=== PATIENT | female | born 1935 | race Caucasian/White ===

== ENCOUNTER → 2017-06-25 | Outpatient (CLI) | payer MEDICARE, BC ==
[~2017-06-25] MED LIST: DENOSUMAB 60 MG/ML 1 ML SYRINGE SQ ONE
[2017-06-25 09:36] VITALS: BP 126/60; PULSE 72; RESP 16; TEMP 97.9
== END | disposition home or self-care (01) ==
LOC: PROCWHC3 08:57
PROVIDERS: ATTEND Family Medicine
DX: M81.0 Age-related osteoporosis without current pathological fracture (principal)
CPT/HCPCS: 96372; J0897

== ENCOUNTER → 2019-10-05 | Outpatient (CLI) | payer MEDICARE, BC ==
--- NOTE | 2019-10-05 15:56 | US ---
EXAMINATION TYPE: US kidneys/renal and bladder DATE OF EXAM: 10/05/2019 COMPARISON: US 2016 CLINICAL HISTORY: N18.4 CKD stage 4. CKD stage 4 EXAM MEASUREMENTS: Right Kidney: 7.2 x 3.8 x 3.8 cm Left Kidney: 8.2 x 4.7 x 3.5 cm Right Kidney: measures small in size, no hydronephrosis or masses seen Left Kidney: measures small in size, no hydronephrosis, 0.9cm cortical cyst Bladder: not fully distended, appears wnl as seen Bilateral Jets seen: right jet not seen, left jet seen IMPRESSION: 1. Visualized renal ultrasound is unremarkable 2. There appears to be some thinning of the cortex on the right kidney suggestive for renal failure
== END ==
LOC: RADUSWWP 12:24
PROVIDERS: ATTEND Family Medicine
DX: R93.421 Abnormal radiologic findings on diagnostic imaging of right kidney (principal); N18.4 Chronic kidney disease, stage 4 (severe)
CPT/HCPCS: 76770

== ENCOUNTER → 2019-12-22 | Outpatient (CLI) | payer MEDICARE, BC ==
[2019-12-22 14:22] LABS: HCT 34.3 % (34.0-46.0); HGB 10.9 gm/dL (11.4-16.0); MCH 29.8 pg (25.0-35.0); MCHC 31.7 g/dL (31.0-37.0); MCV 94.2 fL (80.0-100.0); Mean Platelet Volume 7.7; Platelet Count 154 k/uL (150-450); RBC 3.64 m/uL (3.80-5.40); RDW 13.2 % (11.5-15.5)
[2019-12-22 14:31] LABS: Prothrombin Time 10.6 sec (9.0-12.0)
[2019-12-22 18:46] LABS: ALT <8 U/L (8-44); AST 14 U/L (13-35); African American GFR (CKD) 26.3 (60.0-200.0); Albumin/Globulin Ratio 2.44 (1.60-3.17); Alkaline Phosphatase 48 U/L (41-126); Calcium 9.8 mg/dL (8.7-10.3); Carbon Dioxide 25.3 mmol/L (21.6-31.8); Chloride 106 mmol/L (96-109); Globulin 1.8 g/dL (1.6-3.3); Glucose 135 mg/dL (70-110); Magnesium 1.8 mg/dL (1.5-2.4); Non-African American GFR(CKD) 22.7 (60.0-200.0); Potassium 5.2 mmol/L (3.5-5.5); Sodium 140 mmol/L (135-145); Total Bilirubin 0.5 mg/dL (0.3-1.2); Total Protein 6.2 g/dL (6.2-8.2)
== END | disposition home or self-care (01) ==
LOC: LABWHC1 12:16
PROVIDERS: ATTEND Student in an Organized Health Care Education/Training Program
DX: I11.0 Hypertensive heart disease with heart failure (principal); I25.119 Atherosclerotic heart disease of native coronary artery with unspecified angina pectoris; I50.9 Heart failure, unspecified; I34.0 Nonrheumatic mitral (valve) insufficiency
CPT/HCPCS: 36415; 80053; 83735; 83880; 85027; 85610

== ENCOUNTER 2020-10-06 19:27 | Inpatient (IN) | payer MEDICARE, BC ==
[2020-10-06] MEDS ORDERED: SODIUM CHLORIDE 0.9% 500 ML 500 ML IV STA (19:44)
[2020-10-06] MEDS ORDERED: SODIUM CHLORIDE 0.9% 1,000 ML IV STA (19:44)
[2020-10-06] MEDS ORDERED: MORPHINE SULFATE 4 MG/ML SYRINGE IV STA (19:44)
[2020-10-06] MEDS ORDERED: LABETALOL 5 MG/ML VIAL MDV IVP STA ×2 (19:44→20:39)
--- NOTE | 2020-10-06 19:45 | ED ---
Chest Pain HPI - General Chief Complaint: Chest Pain Stated Complaint: Chest Pain/High BP Time Seen by Provider: 10/06/20 19:44 Source: patient, RN notes reviewed, old records reviewed Mode of arrival: wheelchair Limitations: no limitations - History of Present Illness Initial Comments: This is a 5-year-old female who presents with sudden onset chest pain was severely elevated blood pressure. Patient does admit to anxiety with this chest pain history of heart disease history of heart surgery. Patient has had bypass grafting. She has had stents placed since. No recent fevers cough or congestion of travel history symptoms began just prior to arrival with diaphoresis and shortness of breath MD Complaint: chest pain -: hour(s) Onset: during rest Pain Location: left chest, right chest Pain Radiation: back Severity: severe Severity scale (1-10): 10 Quality: heaviness, sharp Consistency: constant Improves With: nothing Worsens With: nothing Anginal Symptoms: nausea, dyspnea, sense of impending doom Other Symptoms: palpitations Treatments Prior to Arrival: none - Related Data Home Medications Medication Instructions Recorded Confirmed Atorvastatin [Lipitor] 40 mg PO HS 03/17/15 10/06/20 Cholecalciferol [Vitamin D3 (25 1,000 unit PO DAILY 03/17/15 10/06/20 Mcg = 1000 Iu)] Cinnamon Bark [Cinnamon] 1,000 mg PO BID 03/17/15 10/06/20 Isosorbide Mononitrate ER [Imdur] 60 mg PO BID 03/17/15 10/06/20 Metoprolol Tartrate [Lopressor] 100 mg PO BID 06/25/17 10/06/20 Alendronate Sodium 70 mg PO RITCHIE 10/06/20 10/06/20 Aspirin EC [Ecotrin Low Dose] 81 mg PO DAILY 10/06/20 10/06/20 Calcium Carbonate [Calcium] 600 mg PO DAILY 10/06/20 10/06/20 Famotidine 20 mg PO DAILY 10/06/20 10/06/20 Fish Oil/Dha/Epa [Fish Oil 1,200 1 cap PO BID 10/06/20 10/06/20 mg Fish Oil] Nitroglycerin Sl Tabs [Nitrostat] 0.4 mg SUBLINGUAL Q5M PRN 10/06/20 10/06/20 Prednisolone Acetate/Pf 1 drop BOTH EYES BID 10/06/20 10/06/20 [Prednisolone Acet 1% Eye Drop] Ranolazine [Ranolazine ER] 500 mg PO BID 10/06/20 10/06/20 Allergies Allergy/AdvReac Type Severity Reaction Status Date / Time CHALINO Inhibitors Allergy Unknown Cough Verified 10/06/20 20:40 adhesive Allergy Rash/Hives,states Verified 10/06/20 20:40 "paper tape is ok" Sulfa (Sulfonamide Allergy skin turns Verified 10/06/20 20:40 Antibiotics) bright red Review of Systems ROS Statement: Those systems with pertinent positive or pertinent negative responses have been documented in the HPI. ROS Other: All systems not noted in ROS Statement are negative. EKG Findings - EKG Comments: EKG Findings:: EKG SHOWS N sinus rhythm 78, NM 240 QRS 88 QTc 449 Past Medical History Past Medical History: GERD/Reflux, Hyperlipidemia, Hypertension Additional Past Medical History / Comment(s): 04/13/15 Pt admitted to floor s/p angioplasty RCA. HX OF KIDNEY CA, HAVING INTERMITTENT CHEST PAIN WITH EXERTION, NIDDM, CATARACTS, UTI, WAS TOLD BY A DR SHE HAD AN DE AT ONE TIME BASED ON AN EKG THAT WAS DONE-DATE UNK, Valve and clip procedure done at [facility] in dec 2019 History of Any Multi-Drug Resistant Organisms: None Reported Past Surgical History: Heart Catheterization Additional Past Surgical History / Comment(s): 04/13/15 PTCA RCA, 1996 CABG 4 VESSEL, 10% RT KIDNEY REMOVED, 2016 R leg angioplasty Past Anesthesia/Blood Transfusion Reactions: No Reported Reaction Past Psychological History: No Psychological Hx Reported Smoking Status: Never smoker Past Alcohol Use History: Occasional Past Drug Use History: None Reported - Past Family History Brother(s) Family Medical History: Cancer Additional Family Medical History / Comment(s): LUNG/LIVER Sister(s) Family Medical History: Cancer Additional Family Medical History / Comment(s): LIVER Father Family Medical History: Myocardial Infarction (DE) Additional Family Medical History / Comment(s): Father of a DE at age 72yrs. Mother Family Medical History: Myocardial Infarction (DE) Additional Family Medical History / Comment(s): Mother had 11 DE's and at age 66 yrs. General Exam Limitations: no limitations General appearance: alert, in no apparent distress Head exam: Present: atraumatic, normocephalic, normal inspection Eye exam: Present: normal appearance, PERRL, EOMI. Absent: scleral icterus, conjunctival injection, periorbital swelling ENT exam: Present: normal exam, mucous membranes moist Neck exam: Present: normal inspection. Absent: tenderness, meningismus, lymphadenopathy Respiratory exam: Present: normal lung sounds bilaterally. Absent: respiratory distress, wheezes, rales, rhonchi, stridor Cardiovascular Exam: Present: regular rate, normal rhythm, normal heart sounds. Absent: systolic murmur, diastolic murmur, rubs, gallop, clicks GI/Abdominal exam: Present: soft, normal bowel sounds. Absent: distended, tenderness, guarding, rebound, rigid Extremities exam: Present: normal inspection, full ROM, normal capillary refill. Absent: tenderness, pedal edema, joint swelling, calf tenderness Back exam: Present: normal inspection Neurological exam: Present: alert, oriented X3, CN II-XII intact Psychiatric exam: Present: normal affect, normal mood Skin exam: Present: warm, dry, intact, normal color. Absent: rash Course Vital Signs 10/06/20 10/06/20 10/06/20 19:30 20:05 20:15 Temperature 97.8 F Pulse Rate 83 Respiratory 24 Rate Blood Pressure 195/113 237/106 243/176 O2 Sat by Pulse 100 Oximetry 10/06/20 10/06/20 10/07/20 21:44 23:52 02:00 Temperature Pulse Rate 70 71 63 Respiratory 18 17 16 Rate Blood Pressure 192/78 187/85 147/60 O2 Sat by Pulse 100 100 100 Oximetry 10/07/20 10/07/20 10/07/20 03:26 06:29 07:57 Temperature 97.7 F Pulse Rate 65 65 66 Respiratory 16 18 Rate Blood Pressure 147/80 176/69 177/82 O2 Sat by Pulse 100 100 Oximetry 10/07/20 10/07/20 10/07/20 09:19 15:12 16:00 Temperature Pulse Rate 71 65 96 Respiratory 18 20 18 Rate Blood Pressure 177/67 179/75 160/77 O2 Sat by Pulse 100 98 Oximetry 10/07/20 17:15 Temperature 98.1 F Pulse Rate 81 Respiratory 20 Rate Blood Pressure 162/68 O2 Sat by Pulse 95 Oximetry - Reevaluation(s) Reevaluation #1: Medical records reviewed Patient was sent for CTA secondary elevated blood pressure chest pain, negative for dissection Patient's pain is improved here in the ER Patient will be admitted for ACS and hypertensive emergency, blood pressures improved Chest Pain MDM - MDM 85 female DF for evaluation of likely ACS, patient has severe chest pain with severe hypertensive emergency. Patient to be admitted for cardiology to evaluate Critical Care Time Critical Care Time: Yes Total Critical Care Time: 31 Disposition Clinical Impression: Chest pain, Hypertensive emergency Disposition: ADMITTED IP TO THIS HOSP Condition: Good Is patient prescribed a controlled substance at d/c from ED?: No
[2020-10-06 20:15] LABS: Basophils # (A) 0.1 k/uL (0-0.2); Basophils % (A) 1 %; Eosinophils # (A) 0.2 k/uL (0-0.7); Eosinophils % (A) 2 %; HCT 39.9 % (34.0-46.0); HGB 13.3 gm/dL (11.4-16.0); Lymphocytes # (A) 1.1 k/uL (1.0-4.8); Lymphocytes % (A) 16 %; MCH 30.4 pg (25.0-35.0); MCHC 33.3 g/dL (31.0-37.0); MCV 91.5 fL (80.0-100.0); Mean Platelet Volume 7.9; Monocytes # (A) 0.3 k/uL (0-1.0); Monocytes % (A) 5 %; Neutrophils % (A) 75 %; Platelet Count 159 k/uL (150-450); RBC 4.36 m/uL (3.80-5.40); RDW 13.6 % (11.5-15.5); WBC 6.7 k/uL (3.8-10.6)
[2020-10-06 20:30] LABS: Prothrombin Time 10.1 sec (9.0-12.0)
[2020-10-06 20:33] LABS: Albumin 4.6 g/dL (3.5-5.0); Calcium 10.3 mg/dL (8.4-10.2); Magnesium 1.7 mg/dL (1.6-2.3); Potassium 4.1 mmol/L (3.5-5.1); Total Bilirubin 0.6 mg/dL (0.2-1.3); Total Protein 7.9 g/dL (6.3-8.2)
[2020-10-06 20:38] LABS: Partial Thromboplastin Time 20.7 sec (22.0-30.0)
--- NOTE | 2020-10-06 21:35 | CT ---
EXAMINATION TYPE: CT angio thor/abd pel aorta DATE OF EXAM: 10/06/2020 COMPARISON: CT abdomen and pelvis May 27, 2014 HISTORY: Hypertension with pain. CT DLP: 1261.1 mGycm. Automated Exposure Control for Dose Reduction was Utilized. CONTRAST: CTA scan of the thorax, abdomen and pelvis is performed with IV Contrast, patient injected with 60 mL of Isovue 370. Three-D reconstructed images created on a independent workstation and reviewed. FINDINGS: Vascular: Four vessel origin from aortic arch which is normal variant. No significant stenosis. Mild to moderate mixed plaque in the thoracic aorta. Moderate calcified plaque at origin of celiac artery causing greater than 50% stenosis and SMA causin g similar greater than 50% stenosis. Calcified plaque likely causes significant stenosis at origin of right renal artery. Mixed plaque causes significant stenosis at origin of left renal artery. Patent WILBER. Moderate to severe mixed plaque in the abdominal aorta extending into common iliac artery branch es. Moderate plaque into the internal/external iliac artery branches. No significant stenosis. Modera te plaque in the bilateral groin region. No aneurysm or dissection. LUNGS: Mild to moderate underlying emphysematous change greatest in the upper lungs with scattered bl ebs and bulla. Mild to moderate scarring and/or atelectasis in both bases. Tiny bilateral pleural eff usions. No suspicious focal consolidation. MEDIASTINUM: There are no greater than 1 cm hilar or mediastinal lymph nodes. No pericardial effusi on is seen. Mild cardiomegaly. Post-CABG changes with mediastinal clips and sternal wires. Calcifica tion at level of mitral valve is presumed surgical change. There is metallic density in the right tanna tricle causing streak artifact axial image 59, possible large foreign body. Correlate clinically. The re are left-sided thyroid nodule including rim calcified 1.6 cm left thyroid nodule axial image 1. LIVER/GB: Gallbladder not seen and presumed surgically absent. PANCREAS: No significant abnormality is seen. SPLEEN: No significant abnormality is seen. ADRENALS: No significant abnormality is seen. KIDNEYS: Cortical thinning both kidneys. Lower pole right renal contour laterally contains fat along with calcific and soft tissue density, there are tiny vessels at this level. 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 BOWEL: Fluid-filled dilated esophagus. Small sized hiatal hernia. Debris-filled distended stomach. No suspicious dilatation of duodenal sweep. Mildly prominent jejunal loops in the left upper to mid abd omen. No suspicious small or large bowel dilatation otherwise. Diverticula in the transverse left and sigmoid colon. No CT evidence for acute diverticulitis. GENITAL ORGANS: Slightly anteverted uterus. LYMPH NODES: No greater than 1cm abdominal or pelvic lymph nodes are appreciated. OSSEOUS STRUCTURES: Multilevel spurring in the spine. Moderate disc space narrowing with vacuum disc phenomenon L5-S1 level. Moderate narrowing of both hip joints. OTHER: No significant additional abnormality is seen. IMPRESSION: 1. No thoracic or abdominal aortic aneurysm. 2. Moderate to severe atherosclerotic change of the abdominal aorta extending into branch vessels wi th significant stenosis likely present at origin of celiac artery, proximal SMA, bilateral single jose antonio al arteries. Findings presumed chronic. Outpatient follow-up is advised. 3. Mild to moderate emphysematous change with tiny bilateral pleural effusions and mild cardiomegaly. Correlate for CHF exacerbation. 4. Metallic right ventricular density of uncertain etiology, possible lodged foreign body versus prod uct of prior surgery. Correlate clinically. 5. Possible gastroparesis or gastric outlet obstruction causing dilated fluid-filled esophagus up to thoracic inlet, correlate clinically. Follow-up advised. 6. Greater than 1 cm rim calcified left thyroid nodule, nonurgent thyroid ultrasound follow-up is adv ised.
[2020-10-06] MEDS ORDERED: NITROGLYCERIN SL TABS 0.4 MG TAB SUBLINGUAL PRN (22:10)
[2020-10-06] MEDS ORDERED: MORPHINE SULFATE 4 MG/ML SYRINGE IV PRN (22:10)
[2020-10-07 03:11] LABS: Cholesterol 118 mg/dL (<200); HDL Cholesterol 56 mg/dL (40-60); LDL Cholesterol,Calculated 40 mg/dL (0-99); Triglycerides 110 mg/dL (<150)
[2020-10-07] MEDS ORDERED: HEPARIN SODIUM,PORCINE 5,000 UNIT/ML 1 ML VIAL IV PRN (07:43)
[2020-10-07] MEDS ORDERED: HEPARIN SODIUM,PORCINE 5,000 UNIT/ML 1 ML VIAL IV ONE (07:43)
[2020-10-07] MEDS ORDERED: ATORVASTATIN 80 MG TAB PO STA ×2 (07:46→08:57)
[2020-10-07] MEDS: ASPIRIN 325 MG TAB PO SCH (07:51)
[2020-10-07] MEDS: HEPARIN SOD,PORK IN 0.45% NACL 25,000 UNIT in 0.45% NACL 1 250ML.BAG IV SCH (07:56)
[2020-10-07 08:25] LABS: Basophils % (A) 0 %; Eosinophils # (A) 0.1 k/uL (0-0.7); Eosinophils % (A) 1 %; HGB 11.9 gm/dL (11.4-16.0); Lymphocytes # (A) 0.9 k/uL (1.0-4.8); Lymphocytes % (A) 16 %; MCH 31.5 pg (25.0-35.0); MCV 92.7 fL (80.0-100.0); Mean Platelet Volume 7.7; Monocytes # (A) 0.3 k/uL (0-1.0); Monocytes % (A) 5 %; Neutrophils # (A) 4.6 k/uL (1.3-7.7); Neutrophils % (A) 77 %; Platelet Count 114 k/uL (150-450); RBC 3.78 m/uL (3.80-5.40); RDW 13.6 % (11.5-15.5)
[2020-10-07 08:34] LABS: Albumin 3.6 g/dL (3.5-5.0); Calcium 9.2 mg/dL (8.4-10.2); Total Bilirubin 0.6 mg/dL (0.2-1.3); Total Protein 6.5 g/dL (6.3-8.2)
[2020-10-07] MEDS ORDERED: SODIUM CHLORIDE 0.9% 1,000 ML in EMPTY BAG 1 BAG IV ONE (08:57)
[2020-10-07] MEDS ORDERED: NITROGLYCERIN SL TABS 0.4 MG TAB SUBLINGUAL PRN (08:57)
[2020-10-07] MEDS ORDERED: ALPRAZolam 0.25 MG TAB PO PRN (08:57)
[2020-10-07] MEDS ORDERED: ALPRAZolam 0.5 MG TAB PO PRN (08:57)
[2020-10-07] MEDS ORDERED: ASPIRIN 325 MG TAB PO STA (08:57)
[2020-10-07] MEDS ORDERED: METOPROLOL TARTRATE 25 MG TAB PO SCH (09:00)
[2020-10-07 09:17] LABS: INR 1.1 (<1.2); Prothrombin Time 11.3 sec (9.0-12.0)
[2020-10-07 09:28] LABS: Partial Thromboplastin Time 152.7 sec (22.0-30.0)
--- NOTE | 2020-10-07 10:48 | P.HPIM ---
History of Present Illness H&P Date: 10/07/20 Chief Complaint: Chest pain This is an 85-year-old white female who reported to the hospital because of right-sided chest pain. She states that her pain started yesterday afternoon, it lasted for about 45 minutes, she describes it as burning pain radiating to her right shoulder. She denies shortness of breath, she denies dizziness or loss of consciousness. She denies cough or fever, she denies subjective fever or chills. At the time of examination her symptoms resolved. She states that she reported to the hospital because she usually does not have pain that radiate s to her shoulder but usually just gets intermittent chest pains. Review of Systems 10 systems reviewed, pertinent positive and negative findings as in HPI, + chest pain, no nausea or vomiting. Past Medical History Past Medical History: GERD/Reflux, Hyperlipidemia, Hypertension Additional Past Medical History / Comment(s): 04/13/15 Pt admitted to floor s/p angioplasty RCA. HX OF KIDNEY CA, HAVING INTERMITTENT CHEST PAIN WITH EXERTION, NIDDM, CATARACTS, UTI, WAS TOLD BY A DR SHE HAD AN KS AT ONE TIME BASED ON AN EKG THAT WAS DONE-DATE UNK, Valve and clip procedure done at [facility] in dec 2019 History of Any Multi-Drug Resistant Organisms: None Reported Past Surgical History: Heart Catheterization Additional Past Surgical History / Comment(s): 04/13/15 PTCA RCA, 1996 CABG 4 VESSEL, 10% RT KIDNEY REMOVED, 2016 R leg angioplasty Past Anesthesia/Blood Transfusion Reactions: No Reported Reaction Past Psychological History: No Psychological Hx Reported Smoking Status: Never smoker Past Alcohol Use History: Occasional Past Drug Use History: None Reported - Past Family History Brother(s) Family Medical History: Cancer Additional Family Medical History / Comment(s): LUNG/LIVER Sister(s) Family Medical History: Cancer Additional Family Medical History / Comment(s): LIVER Father Family Medical History: Myocardial Infarction (KS) Additional Family Medical History / Comment(s): Father of a KS at age 72yrs. Mother Family Medical History: Myocardial Infarction (KS) Additional Family Medical History / Comment(s): Mother had 11 KS's and at age 66 yrs. Medications and Allergies Home Medications Medication Instructions Recorded Confirmed Type Atorvastatin [Lipitor] 40 mg PO HS 03/17/15 10/06/20 History Cholecalciferol [Vitamin D3 (25 1,000 unit PO DAILY 03/17/15 10/06/20 History Mcg = 1000 Iu)] Cinnamon Bark [Cinnamon] 1,000 mg PO BID 03/17/15 10/06/20 History Isosorbide Mononitrate ER [Imdur] 60 mg PO BID 03/17/15 10/06/20 History Metoprolol Tartrate [Lopressor] 100 mg PO BID 06/25/17 10/06/20 History Alendronate Sodium 70 mg PO RITCHIE 10/06/20 10/06/20 History Aspirin EC [Ecotrin Low Dose] 81 mg PO DAILY 10/06/20 10/06/20 History Calcium Carbonate [Calcium] 600 mg PO DAILY 10/06/20 10/06/20 History Famotidine 20 mg PO DAILY 10/06/20 10/06/20 History Fish Oil/Dha/Epa [Fish Oil 1,200 1 cap PO BID 10/06/20 10/06/20 History mg Fish Oil] Nitroglycerin Sl Tabs [Nitrostat] 0.4 mg SUBLINGUAL Q5M PRN 10/06/20 10/06/20 History Prednisolone Acetate/Pf 1 drop BOTH EYES BID 10/06/20 10/06/20 History [Prednisolone Acet 1% Eye Drop] Ranolazine [Ranolazine ER] 500 mg PO BID 10/06/20 10/06/20 History Allergies Allergy/AdvReac Type Severity Reaction Status Date / Time CHALINO Inhibitors Allergy Unknown Cough Verified 10/06/20 20:40 adhesive Allergy Rash/Hives,states Verified 10/06/20 20:40 "paper tape is ok" Sulfa (Sulfonamide Allergy skin turns Verified 10/06/20 20:40 Antibiotics) bright red Physical Exam Vitals: Vital Signs Temp Pulse Resp BP Pulse Ox 10/07/20 09:19 71 18 177/67 100 10/07/20 07:57 97.7 F 66 18 177/82 100 10/07/20 06:29 65 16 176/69 100 10/07/20 03:26 65 147/80 10/07/20 02:00 63 16 147/60 100 10/06/20 23:52 71 17 187/85 100 10/06/20 21:44 70 18 192/78 100 11/26/20 20:15 243/176 10/06/20 20:05 237/106 10/06/20 19:30 97.8 F 83 24 195/113 100 Intake and Output 10/06/20 10/07/20 10/07/20 22:59 06:59 14:59 Intake Total 13.013 Balance 13.013 Intake: Intake, IV Titration 13.013 Amount Heparin Sod,Pork in 0.45% 13.013 NaCl 25,000 unit In 0.45 % NaCl 1 250ml.bag @ 12 UNITS/KG/HR 8.219 mls/hr IV .Q24H [facility] Rx#: [id number] Other: Weight 68.492 kg Constitutional: No acute distress, conversant, pleasant Eyes: Anicteric sclerae, moist conjunctiva, no lid-lag, PERRLA ENMT: NC/AT Neck:Supple, FROM, no masses, or JVD Lungs: Clear to auscultation, Clear to percussion, Normal respiratory effort, no accessory muscle use Cardiovascular: Heart regular in rate and rhythm, No murmurs, gallops, or rubs no peripheral edema Abdominal: Soft Nontender, nom distended, no guarding, no rebound or rigidity, Normoactive bowel sounds No hepatomegaly, No splenomegaly, No palpable mass No abdominal wall hernia noted Skin: Normal temperature, tone, texture, turgor, No induration No subcutaneous nodules Extremities:No digital cyanosis No clubbing, Pedal pulses intact and symmetrical Radial pulses intact and symmetrical Normal gait and station, No calf tenderness Psychiatric: Alert and oriented to person, place and time, Appropriate affect Intact judgement Neuro: Muscles Strength 5/5 in all 4 extremities, Sensation to light touch grossly present throughout, Cranial nerves II-XII grossly intact. No focal sensory deficits Results CBC & Chem 7: 10/07/20 08:16 10/07/20 08:16 Labs: Abnormal Lab Results - Last 24 Hours (Table) 10/06/20 10/06/20 10/06/20 Range/Units 20:07 20:07 22:34 RBC (3.80-5.40) m/uL Plt Count (150-450) k/uL Lymphocytes # (1.0-4.8) k/uL APTT 20.7 L (22.0-30.0) sec BUN 36 H (7-17) mg/dL Creatinine 1.79 H (0.52-1.04) mg/dL Glucose 233 H (74-99) mg/dL Calcium 10.3 H (8.4-10.2) mg/dL Troponin I 0.214 H* (0.000-0.034) ng/mL 10/07/20 10/07/20 10/07/20 Range/Units 02:26 08:16 08:16 RBC 3.78 L (3.80-5.40) m/uL Plt Count 114 L (150-450) k/uL Lymphocytes # 0.9 L (1.0-4.8) k/uL APTT 152.7 H* (22.0-30.0) sec BUN (7-17) mg/dL Creatinine (0.52-1.04) mg/dL Glucose (74-99) mg/dL Calcium (8.4-10.2) mg/dL Troponin I 1.890 H* (0.000-0.034) ng/mL 10/07/20 10/07/20 Range/Units 08:16 08:16 RBC (3.80-5.40) m/uL Plt Count (150-450) k/uL Lymphocytes # (1.0-4.8) k/uL APTT (22.0-30.0) sec BUN 29 H (7-17) mg/dL Creatinine 1.44 H (0.52-1.04) mg/dL Glucose 173 H (74-99) mg/dL Calcium (8.4-10.2) mg/dL Troponin I 4.590 H* (0.000-0.034) ng/mL Assessment and Plan Plan: 1. Non-ST segment elevation KS: Troponin 4.5, continue aspirin, Lipitor, metopr olol and heparin drip. Cardiology input appreciated. CT chest/abdomen no aneurysm or dissection. 2. Essential hypertension: Continue Lopressor 3. Coronary artery disease status post CABG: Continue outpatient medications, cardiology consultation. 4. Hyperlipidemia: Continue simvastatin 5. GERD without esophagitis: Continue PPI Admit to inpatient Disposition: Home in 2-3 days
--- NOTE | 2020-10-07 12:04 | P.CRDCN ---
History of Present Illness Consult date: 10/07/20 History of present illness: CHIEF COMPLAINT: Chest pain HISTORY OF PRESENT ILLNESS: This is a 85-year old female with a past medical history significant for hypertension, hyperlipidemia, coronary artery disease with previous CABG 4 in 1996, and valve clipping performed at [facility] in early 2019. Patient follows in the office with Dr. Aldrich. We have been asked to see the patient in consultation for chest pain. Patient examined this morning at the bedside in the emergency room. Patient states after eating things giving dinner she developed chest discomfort. She states the pain is in the middle of her chest and radiated down her right arm. She denies shortness of breath. Denied nausea or vomiting. She states she took 3 nitro at home without any relief so she came to the emergency room for further evaluation. At the time of my examination the patient is chest pain free and resting comfortably. DIAGNOSTICS: EKG reveals sinus rhythm with ST depression in leads 2, aVF, V3 through V6. P atient did have ST depression on previous EKG however it is more pronounced on this admission. Laboratory data: WBC 6.0. Hemoglobin 11.9. Platelet count 114. Sodium 140. Potassium 4.0. BUN 29. Creatinine 1.44. Troponin 0.021. 0.214. 1.890. 4.590. Current home cardiac medications include metoprolol 100 mg twice a day, Imdur 60 mg twice a day, Lipitor 40 mg daily, aspirin 81 mg daily REVIEW OF SYSTEMS: At the time of my exam: CONSTITUTIONAL: Denies fever or chills. HEENT: Denies blurred vision, vision changes, or eye pain. Denies hemoptysis CARDIOVASCULAR: Denies chest pain, orthopnea, PND or palpitations RESPIRATORY: No shortness of breath. GASTROINTESTINAL: Denies abdominal pain. Denies nausea or vomiting. HEMATOLOGIC: Denies bleeding disorders. GENITOURINARY: Denies any blood in urine. SKIN: Denies pruitis. Denies rash. PHYSICAL EXAM: VITAL SIGNS: Reviewed. GENERAL: Well-developed in no acute distress. HEENT: Head is normocephalic. Pupils are equal, round. Sclerae anicteric. Mucous membranes of the mouth are moist. Neck supple. No JVD or thyromegaly LUNGS: Respirations even and unlabored. Lungs essentially clear to auscultation bilaterally. HEART: Regular rate and rhythm. S1 and S2 heard. Systolic murmur noted. ABDOMEN: Soft. Nondistended. Nontender. EXTREMITIES: Normal range of motion. No clubbing or cyanosis. Peripheral pulses intact. No lower extremity edema NEUROLOGIC: Awake and alert. Oriented x 3. ASSESSMENT: Non-ST elevated myocardial infarction History of coronary artery disease with previous CABG 4 in 1996 Hypertension Hyperlipidemia Acute kidney injury PLAN: Obtain 2-D echo to assess cardiac structure and function Resume home cardiac medications Begin IV heparin drip Patient will require cardiac catheterization. However patient received IV dye for computed tomography scan today. Will recheck creatinine in a.m. If kidney function remains stable patient will undergo cardiac cath rotation tomorrow with Dr. Eden Nurse practitioner note has been reviewed by physician. Signing provider agrees with the documented findings, assessment, and plan of care. Past Medical History Past Medical History: GERD/Reflux, Hyperlipidemia, Hypertension Additional Past Medical History / Comment(s): 04/13/15 Pt admitted to floor s/p angioplasty RCA. HX OF KIDNEY CA, HAVING INTERMITTENT CHEST PAIN WITH EXERTION, NIDDM, CATARACTS, UTI, WAS TOLD BY A DR SHE HAD AN ID AT ONE TIME BASED ON AN EKG THAT WAS DONE-DATE UNK, Valve and clip procedure done at [facility] in dec 2019 History of Any Multi-Drug Resistant Organisms: None Reported Past Surgical History: Heart Catheterization Additional Past Surgical History / Comment(s): 04/13/15 PTCA RCA, 1996 CABG 4 VESSEL, 10% RT KIDNEY REMOVED, 2016 R leg angioplasty Past Anesthesia/Blood Transfusion Reactions: No Reported Reaction Past Psychological History: No Psychological Hx Reported Smoking Status: Never smoker Past Alcohol Use History: Occasional Past Drug Use History: None Reported - Past Family History Brother(s) Family Medical History: Cancer Additional Family Medical History / Comment(s): LUNG/LIVER Sister(s) Family Medical History: Cancer Additional Family Medical History / Comment(s): LIVER Father Family Medical History: Myocardial Infarction (ID) Additional Family Medical History / Comment(s): Father of a ID at age 72yrs. Mother Family Medical History: Myocardial Infarction (ID) Additional Family Medical History / Comment(s): Mother had 11 ID's and at age 66 yrs. Medications and Allergies Home Medications Medication Instructions Recorded Confirmed Type Atorvastatin [Lipitor] 40 mg PO HS 03/17/15 10/06/20 History Cholecalciferol [Vitamin D3 (25 1,000 unit PO DAILY 03/17/15 10/06/20 History Mcg = 1000 Iu)] Cinnamon Bark [Cinnamon] 1,000 mg PO BID 03/17/15 10/06/20 History Isosorbide Mononitrate ER [Imdur] 60 mg PO BID 03/17/15 10/06/20 History Metoprolol Tartrate [Lopressor] 100 mg PO BID 06/25/17 10/06/20 History Alendronate Sodium 70 mg PO RITCHIE 10/06/20 10/06/20 History Aspirin EC [Ecotrin Low Dose] 81 mg PO DAILY 10/06/20 10/06/20 History Calcium Carbonate [Calcium] 600 mg PO DAILY 10/06/20 10/06/20 History Famotidine 20 mg PO DAILY 10/06/20 10/06/20 History Fish Oil/Dha/Epa [Fish Oil 1,200 1 cap PO BID 10/06/20 10/06/20 History mg Fish Oil] Nitroglycerin Sl Tabs [Nitrostat] 0.4 mg SUBLINGUAL Q5M PRN 10/06/20 10/06/20 History Prednisolone Acetate/Pf 1 drop BOTH EYES BID 10/06/20 10/06/20 History [Prednisolone Acet 1% Eye Drop] Ranolazine [Ranolazine ER] 500 mg PO BID 10/06/20 10/06/20 History Allergies Allergy/AdvReac Type Severity Reaction Status Date / Time CHALINO Inhibitors Allergy Unknown Cough Verified 10/06/20 20:40 adhesive Allergy Rash/Hives,states Verified 10/06/20 20:40 "paper tape is ok" Sulfa (Sulfonamide Allergy skin turns Verified 10/06/20 20:40 Antibiotics) bright red Physical Exam Vitals: Vital Signs Temp Pulse Resp BP Pulse Ox 10/07/20 09:19 71 18 177/67 100 10/07/20 07:57 97.7 F 66 18 177/82 100 10/07/20 06:29 65 16 176/69 100 10/07/20 03:26 65 147/80 10/07/20 02:00 63 16 147/60 100 10/06/20 23:52 71 17 187/85 100 10/06/20 21:44 70 18 192/78 100 10/06/20 20:15 243/176 10/06/20 20:05 237/106 10/06/20 19:30 97.8 F 83 24 195/113 100 Intake and Output 10/06/20 10/07/20 10/07/20 22:59 06:59 14:59 Intake Total 13.013 Balance 13.013 Intake: Intake, IV Titration 13.013 Amount Heparin Sod,Pork in 0.45% 13.013 NaCl 25,000 unit In 0.45 % NaCl 1 250ml.bag @ 12 UNITS/KG/HR 8.219 mls/hr IV .Q24H [facility] Rx#: [id number] Other: Weight 68.492 kg Results 10/07/20 08:16 10/07/20 08:16 Cardiac Enzymes 10/06/20 10/06/20 10/06/20 Range/Units 20:07 20:07 22:34 AST 26 (14-36) U/L Troponin I 0.021 0.214 H* (0.000-0.034) ng/mL 10/07/20 10/07/20 10/07/20 Range/Units 02:26 08:16 08:16 AST 33 (14-36) U/L Troponin I 1.890 H* 4.590 H* (0.000-0.034) ng/mL Coagulation 10/06/20 10/07/20 Range/Units 20:07 08:16 PT 10.1 11.3 (9.0-12.0) sec APTT 20.7 L 152.7 H* (22.0-30.0) sec Lipids 10/07/20 Range/Units 02:26 Triglycerides 110 (<150) mg/dL Cholesterol 118 (<200) mg/dL HDL Cholesterol 56 (40-60) mg/dL CBC 10/06/20 10/07/20 Range/Units 20:07 08:16 WBC 6.7 6.0 (3.8-10.6) k/uL RBC 4.36 3.78 L (3.80-5.40) m/uL Hgb 13.3 11.9 (11.4-16.0) gm/dL Hct 39.9 35.0 (34.0-46.0) % Plt Count 159 114 L (150-450) k/uL Comprehensive Metabolic Panel 10/06/20 10/07/20 Range/Units 20:07 08:16 Sodium 138 140 (137-145) mmol/L Potassium 4.1 4.0 (3.5-5.1) mmol/L Chloride 102 107 (98-107) mmol/L Carbon Dioxide 26 26 (22-30) mmol/L BUN 36 H 29 H (7-17) mg/dL Creatinine 1.79 H 1.44 H (0.52-1.04) mg/dL Glucose 233 H 173 H (74-99) mg/dL Calcium 10.3 H 9.2 (8.4-10.2) mg/dL AST 26 33 (14-36) U/L ALT 13 10 (4-34) U/L Alkaline Phosphatase 54 46 (38-126) U/L Total Protein 7.9 6.5 (6.3-8.2) g/dL Albumin 4.6 3.6 (3.5-5.0) g/dL Current Medications Generic Name Dose Route Start Last Admin Trade Name Freq PRN Reason Stop Dose Admin Alprazolam 0.25 mg 10/07/20 08:57 Alprazolam 0.25 Mg Tab PO Q6HR PRN Mild Anxiety Alprazolam 0.5 mg 10/07/20 08:57 Alprazolam 0.5 Mg Tab PO Q6HR PRN Moderate Anxiety Aspirin 325 mg 10/07/20 09:00 10/07/20 07:51 Aspirin 325 Mg Tab PO 325 mg DAILY LINK Administration Atorvastatin Calcium 80 mg 10/07/20 21:00 Atorvastatin 80 Mg Tab PO HS LINK Heparin Sodium (Porcine) 0 unit 10/07/20 07:43 Heparin Sodium,Porcine 5,000 Unit/Ml 1 Ml Vial IV PER PROTOCOL PRN Low PTT Protocol Heparin Sodium/Sodium Chloride 250 mls @ 8.219 mls/hr 10/07/20 07:45 10/07/20 09:31 25,000 unit/ Sodium Chloride IV 0 units/kg/hr .Q24H LINK 0 mls/hr Titration Protocol 12 UNITS/KG/HR Sodium Chloride 1,000 ml/ IV 1,000 mls @ 68.492 mls/hr 10/07/20 08:57 Solution IV 10/07/20 23:33 .[id number] ONE 1 ML/KG/HR Metoprolol Tartrate 25 mg 10/07/20 09:00 10/07/20 07:51 Metoprolol Tartrate 25 Mg Tab PO 25 mg BID LINK Administration Morphine Sulfate 4 mg 10/06/20 22:10 Morphine Sulfate 4 Mg/Ml Syringe IV Q4HR PRN Chest Pain Nitroglycerin 0.4 mg 10/06/20 22:10 Nitroglycerin Sl Tabs 0.4 Mg Tab SUBLINGUAL Q5M PRN Chest Pain Nitroglycerin 0.4 mg 10/07/20 08:57 Nitroglycerin Sl Tabs 0.4 Mg Tab SUBLINGUAL Q5M PRN Chest Pain Intake and Output 10/06/20 10/07/20 10/07/20 22:59 06:59 14:59 Intake Total 13.013 Balance 13.013 Intake: Intake, IV Titration 13.013 Amount Heparin Sod,Pork in 0.45% 13.013 NaCl 25,000 unit In 0.45 % NaCl 1 250ml.bag @ 12 UNITS/KG/HR 8.219 mls/hr IV .Q24H [facility] Rx#: [id number] Other: Weight 68.492 kg 10/07/20 08:16 10/07/20 08:16
--- NOTE | 2020-10-07 13:20 | ECHOF ---
Referral Reason:Elevated troponins, Chest pain MEASUREMENTS -------- HEIGHT: 167.6 cm WEIGHT: 68.5 kg BP: 162/82 IVSd: 1.2 cm (0.6 - 1.1) LVIDd: 4.3 cm (3.9 - 5.3) LVPWd: 1.2 cm (0.6 - 1.1) EDV(Teich): 85 ml IVSs: 1.6 cm LVIDs: 3.0 cm LVPWs: 1.6 cm %IVS Thck: 40 % ESV(Teich): 36 ml EF(Teich): 58 % %FS: 30 % SV(Teich): 49 ml LA Diam: 3.9 cm (2.7 - 3.8) RVIDd: 3.3 cm (< 3.3) LVLd A4C: 7.3 cm LVEDV MOD A4C: 68 ml LVLs A4C: 7.0 cm LVESV MOD A4C: 28 ml LVEF MOD A4C: 59 % SV MOD A4C: 40 ml LVLd A2C: 7.4 cm LVEDV MOD A2C: 64 ml LVLs A2C: 6.4 cm LVESV MOD A2C: 32 ml LVEF MOD A2C: 50 % SV MOD A2C: 32 ml EF Biplane: 54 % LVEDV MOD BP: 66 ml LVESV MOD BP: 31 ml LALs A4C: 5.3 cm LAAs A4C: 19.2 cm LAESV A-L A4C: 60 ml LAESV MOD A4C: 56 ml HR_4Ch_Q: 67 bpm LVVED_4Ch_Q: 110 ml LVVES_4Ch_Q: 70 ml LVEF_4Ch_Q: 37 % LVSV_4Ch_Q: 40 ml LVCO_4Ch_Q: 2.7 l/min LVLs_4Ch_Q: 6.2 cm LVLd_4Ch_Q: 7.2 cm Ao Diam: 2.4 cm (2.0 - 3.7) AV Cusp: 1.4 cm (1.5 - 2.6) EPSS: 1.9 cm MV E Neftaly: 1.81 m/s MV DecT: 256 ms MV Dec Crockett: 7.1 m/s MV A Neftaly: 1.36 m/s MV E/A Ratio: 1.33 MV PHT: 74 ms MV Vmax: 2.00 m/s MV Vmean: 1.02 m/s MV maxP.93 mmHg MV meanP.02 mmHg MV VTI: 51.9 cm AV Vmax: 1.38 m/s AV maxP.57 mmHg TR Vmax: 3.77 m/s TR maxP.93 mmHg RAP: 5.00 mmHg RVSP: 61.93 mmHg MV EF SLOPE: 8.31 mm/s (70 - 150) MV EXCURSION: 7.29 mm (> 18.000) FINDINGS -------- Sinus rhythm. This was a technically adequate study. The left ventricular size is normal. There is mild concentric left ventricular hypertrophy. Overa ll left ventricular systolic function is mild-moderately impaired with, an EF between 40 - 45 %. Ba fatuma lateral LV wall motion is hypokinetic. Basal inferior LV wall motion is hypokinetic. Basal inferoseptal LV wall motion is hypokinetic. Mid inferoseptal LV wall motion is hypokinetic. The right ventricle is mildly enlarged. The left atrium is normal in size. The right atrial size is normal. Lumason used Interatrial and interventricular septum intact. There is mild aortic valve sclerosis. There is mild aortic regurgitation. Mild mitral annular calcification present. Moderate mitral regurgitation is present. Mitral valve clip Moderate to severe tricuspid regurgitation present. There is severe pulmonary hypertension. The r ight ventricular systolic pressure, as measured by Doppler, is 61.93mmHg. The pulmonic valve was not well visualized. The aortic root size is normal. Normal inferior vena cava with normal inspiratory collapse consistent with estimated right atrial pre ssure of 5 mmHg. There is no pericardial effusion. CONCLUSIONS -------- 1. There is mild concentric left ventricular hypertrophy. 2. Overall left ventricular systolic function is mild-moderately impaired with, an EF between 40 - 45 %. 3. Basal lateral LV wall motion is hypokinetic. 4. Basal inferior LV wall motion is hypokinetic. 5. Basal inferoseptal LV wall motion is hypokinetic. 6. Mid inferoseptal LV wall motion is hypokinetic. 7. The right ventricle is mildly enlarged. 8. Lumason used 9. There is mild aortic valve sclerosis. 10. There is mild aortic regurgitation. 11. Mild mitral annular calcification present. 12. Moderate mitral regurgitation is present. 13. Mitral valve clip 14. Moderate to severe tricuspid regurgitation present. 15. There is severe pulmonary hypertension. 16. There is no pericardial effusion. [employer]INE [employer]EL MECH[employer]IC: Susy Andersen RDCS
[2020-10-07 20:10] LABS: Glucose,Whole Blood 158 mg/dL (75-99)
[2020-10-07] MEDS: METOPROLOL TARTRATE 50 MG TAB PO SCH (20:21)
[2020-10-07] MEDS: ISOSORBIDE MONONITRATE ER 60 MG TAB.ER.24H PO SCH (20:21)
[2020-10-07] MEDS: ATORVASTATIN 80 MG TAB PO SCH (20:21)
[2020-10-07] MEDS ORDERED: cloNIDine HCL 0.2 MG TAB PO PRN (21:50)
[2020-10-08 06:33] LABS: Glucose,Whole Blood 185 mg/dL (75-99)
[2020-10-08] MEDS: ISOSORBIDE MONONITRATE ER 60 MG TAB.ER.24H PO SCH ×2 (08:49→21:31)
[2020-10-08] MEDS: METOPROLOL TARTRATE 50 MG TAB PO SCH ×2 (08:49→21:31)
[2020-10-08] MEDS: ASPIRIN 325 MG TAB PO SCH (08:49)
[2020-10-08 09:30] LABS: Basophils % (A) 0 %; Eosinophils # (A) 0.1 k/uL (0-0.7); Eosinophils % (A) 1 %; HCT 31.4 % (34.0-46.0); HGB 10.6 gm/dL (11.4-16.0); Lymphocytes # (A) 0.6 k/uL (1.0-4.8); Lymphocytes % (A) 12 %; MCH 31.6 pg (25.0-35.0); MCHC 33.7 g/dL (31.0-37.0); MCV 93.8 fL (80.0-100.0); Mean Platelet Volume 8.1; Monocytes # (A) 0.2 k/uL (0-1.0); Monocytes % (A) 5 %; Neutrophils # (A) 3.7 k/uL (1.3-7.7); Neutrophils % (A) 80 %; RBC 3.34 m/uL (3.80-5.40); RDW 13.7 % (11.5-15.5); WBC 4.6 k/uL (3.8-10.6)
--- NOTE | 2020-10-08 09:56 | P.PN ---
Subjective Progress Note Date: 10/08/20 Principal diagnosis: NSTEMI Feels fine today, no chest pain, no pain no shortness of breath, no nausea no vomiting. Objective - Vital Signs Vital signs: Vital Signs Temp 98.2 F 10/08/20 05:08 Pulse 70 10/08/20 05:08 Resp 20 10/08/20 05:08 BP 155/70 10/08/20 05:08 Pulse Ox 99 10/08/20 05:08 Intake & Output 10/07/20 10/08/20 10/08/20 18:59 06:59 18:59 Intake Total 47.719 0 Balance 47.719 0 Weight 68.6 kg 68.9 kg Intake: Intake, IV Titration 47.719 Amount Heparin Sod,Pork in 0.45% 47.719 NaCl 25,000 unit In 0.45 % NaCl 1 250ml.bag @ 12 UNITS/KG/HR 8.219 mls/hr IV .Q24H [facility] Rx#: [id number] Oral 0 Other: Voiding Method Toilet # Voids 0 1 - Exam Constitutional: No acute distress, conversant, pleasant Eyes: Anicteric sclerae, moist conjunctiva, no lid-lag, PERRLA ENMT: NC/AT Neck:Supple, FROM, no masses, or JVD Lungs: Clear to auscultation, Clear to percussion, Normal respiratory effort, no accessory muscle use Cardiovascular: Heart regular in rate and rhythm, No murmurs, gallops, or rubs no peripheral edema Abdominal: Soft Nontender, nom distended, no guarding, no rebound or rigidity, Normoactive bowel sounds No hepatomegaly, No splenomegaly, No palpable mass No abdominal wall hernia noted Skin: Normal temperature, tone, texture, turgor, No induration No subcutaneous nodules Extremities:No digital cyanosis No clubbing, No edema Psychiatric: Alert and oriented to person, place and time, Appropriate affect Intact judgement Neuro: Muscles Strength 5/5 in all 4 extremities, Sensation to light touch grossly present throughout, Cranial nerves II-XII grossly intact. No focal sensory deficits - Labs CBC & Chem 7: 10/07/20 08:16 10/07/20 08:16 Labs: Abnormal Lab Results - Last 24 Hours (Table) 10/07/20 10/07/20 10/07/20 Range/Units 16:58 20:08 23:06 APTT 36.6 H 43.8 H (22.0-30.0) sec POC Glucose (mg/dL) 158 H (75-99) mg/dL 10/08/20 10/08/20 Range/Units 06:30 07:54 APTT 46.2 H (22.0-30.0) sec POC Glucose (mg/dL) 185 H (75-99) mg/dL Assessment and Plan Plan: 1. Non-ST segment elevation NH: Troponin 4.5, continue aspirin, Lipitor, m etoprolol and heparin drip. Cardiology input appreciated. CT chest/abdomen no aneurysm or dissection. 2-D echo consistent with EF 40-45%. Plan for Cardiac catheterization likely today. ccm 2. Essential hypertension: Continue Lopressor 3. Coronary artery disease status post CABG: Continue outpatient medications, cardiology consultation. 4. Hyperlipidemia: Continue simvastatin 5. GERD without esophagitis: Continue PPI Beata 6. Acute kidney injury secondary to hypovolemia 6. Acute kidney injury secondary to hypovolemia/chronic kidney disease stage III B secondary to hypertension, baseline serum creatinine 1.7-1.8 Disposition: Home in 2-3 days Treatment plan discussed with the RN , patient and her daughter at bedside.
[2020-10-08 10:18] LABS: Albumin 2.8 g/dL (3.5-5.0); Calcium 8.5 mg/dL (8.4-10.2); Potassium 4.7 mmol/L (3.5-5.1); Total Bilirubin 0.8 mg/dL (0.2-1.3); Total Protein 5.2 g/dL (6.3-8.2)
[2020-10-08] MEDS ORDERED: ALPRAZolam 0.5 MG TAB PO PRN (11:02)
[2020-10-08] MEDS ORDERED: SODIUM CHLORIDE 0.9% 1,000 ML in EMPTY BAG 1 BAG IV ONE (11:02)
[2020-10-08] MEDS ORDERED: ALPRAZolam 0.25 MG TAB PO PRN (11:02)
[2020-10-08] MEDS ORDERED: NITROGLYCERIN SL TABS 0.4 MG TAB SUBLINGUAL PRN (11:02)
[2020-10-08] MEDS ORDERED: ATORVASTATIN 80 MG TAB PO STA (11:02)
[2020-10-08] MEDS ORDERED: ASPIRIN 325 MG TAB PO STA (11:02)
[2020-10-08] MEDS: ATORVASTATIN 80 MG TAB PO SCH (11:12)
[2020-10-08] MEDS ORDERED: LIDOCAINE 1% INJ 10MG/ML (20 ML MDV) ONE (11:26)
[2020-10-08] MEDS ORDERED: IV FLUID CONTINUATION 1,000 ML IV ONE (11:45)
[2020-10-08] MEDS ORDERED: fentaNYL (PF) 50 MCG/ML 2 ML AMP ONE (11:57)
[2020-10-08] MEDS ORDERED: MIDAZOLAM 2 MG/2 ML VIAL IVP ONE (12:00)
[2020-10-08] MEDS ORDERED: fentaNYL (PF) 50 MCG/ML 2 ML AMP IVP ONE (12:00)
[2020-10-08] MEDS ORDERED: LIDOCAINE 1% INJ 10MG/ML (20 ML MDV) SQ ONE (12:02)
[2020-10-08] MEDS ORDERED: IOPAMIDOL-370 125ML BTL INJ ONE (12:25)
[2020-10-08] MEDS: HEPARIN SOD,PORK IN 0.45% NACL 25,000 UNIT in 0.45% NACL 1 250ML.BAG IV SCH ×2 (12:31→23:50)
[2020-10-08] MEDS ORDERED: RX INFO: IV CONTRAST WAS GIVEN 1 EACH MISC MISCELLANE PRN (12:34)
--- NOTE | 2020-10-08 12:42 | P.CARDCATH ---
Date of Procedure: 10/08/20 Preoperative Diagnosis: Non-STEMI Postoperative Diagnosis: Total occlusion of the RCA, patent graft to the circumflex and the LAD Procedure(s) Performed: Left heart cath without left ventriculography Description of Procedure: HISTORY: This is a 84-year-old female who was admitted to the hospital with chest pain and positive troponin suggestive of non-STEMI. Patient is advised to have cardiac catheterization for definitive diagnosis. CONSENT:I have discussed the risks, benefits and alternative therapies for the above-mentioned procedure and for both sedation/analgesia as well as necessary blood product administration, if indicated, as they pertain to this patient. The patient has indicated understanding and acceptance of the risks and procedures discussed. PROCEDURE: Patient was brought to the lab in a fasting state. Patient was given some IV sedation. The left groin is infiltrated with lidocaine and left femoral artery was entered using Seldinger technique. A 6-Macedonian catheter was left in place and selective coronary arteriography was performed. Patient tolerated the procedure well. Femoral angiogram was performed and manual compression was applied for hemostasis. No immediate complications were noted and patient was transferred to [facility] in a stable condition Conscious Sedation: Versed 0.5mg Fentanyl 25 g Duration 20minutes HEMODYNAMICS: The aortic pressure is about 140/70. Left ventricular end- diastolic pressure is 20. There was no gradient across the aortic valve SELECTIVE CORONARY ARTERIOGRAPHY: LEFT MAIN: Not selectively study as it was documented to be totally occluded previously THE LEFT ANTERIOR DESCENDING CORONARY ARTERY: Total occlusion THE LEFT CIRCUMFLEX AND IS CORONARY ARTERY: Total occlusion THE RIGHT CORONARY ARTERY: Total occlusion. He previously patient had diffuse disease involving the ostium. Attempted stent placement was unsuccessful. HADDAD graft to the LAD: This is patent throat its length and also attention anastomosis. The LAD beyond the anastomosis has diffuse disease with areas of about 50-60% stenosis which are chronic and stable. Vein graft to the circumflex: This is patent at the proximal and distal anastomosis. The shinnecock circumflex coronary artery has proximal disease but distal to the connection seemed to be patent. The vein graft fills the entire circumflex system. LEFT VENTRICULOGRAPHY: Not performed FINAL IMPRESSION: Total occlusion of all shinnecock vessels. Total occlusion of the RCA probably caused the current incident. The HADDAD graft to the LAD is patent and vein graft to the circumflex is patent PLAN: Maximum medical therapy and this factor modification PROGNOSIS: Fair
[2020-10-08 14:15] LABS: Platelet Count 74 k/uL (150-450)
[2020-10-08] MEDS: SODIUM CHLORIDE 0.9% 1,000 ML IV SCH (16:46)
[2020-10-08 18:50] LABS: Hemoglobin A1C 6.7 % (4.0-6.0)
[2020-10-08 19:55] LABS: Glucose,Whole Blood 190 mg/dL (75-99)
[2020-10-09 06:06] LABS: Glucose,Whole Blood 139 mg/dL (75-99)
[2020-10-09 07:52] LABS: Basophils % (A) 0 %; Eosinophils # (A) 0.1 k/uL (0-0.7); Eosinophils % (A) 2 %; HCT 32.4 % (34.0-46.0); HGB 10.6 gm/dL (11.4-16.0); Lymphocytes # (A) 0.8 k/uL (1.0-4.8); Lymphocytes % (A) 20 %; MCH 30.8 pg (25.0-35.0); MCHC 32.8 g/dL (31.0-37.0); MCV 93.7 fL (80.0-100.0); Mean Platelet Volume 7.9; Monocytes # (A) 0.2 k/uL (0-1.0); Monocytes % (A) 4 %; Neutrophils # (A) 2.9 k/uL (1.3-7.7); Neutrophils % (A) 73 %; RBC 3.46 m/uL (3.80-5.40); RDW 13.8 % (11.5-15.5)
[2020-10-09 08:08] LABS: Platelet Count 95 k/uL (150-450)
[2020-10-09 08:10] LABS: Albumin 3.2 g/dL (3.5-5.0); Calcium 8.5 mg/dL (8.4-10.2); Potassium 4.3 mmol/L (3.5-5.1); Total Bilirubin 0.8 mg/dL (0.2-1.3); Total Protein 5.8 g/dL (6.3-8.2)
[2020-10-09] MEDS: ASPIRIN 325 MG TAB PO SCH (08:49)
[2020-10-09] MEDS: ISOSORBIDE MONONITRATE ER 60 MG TAB.ER.24H PO SCH (08:49)
[2020-10-09] MEDS: METOPROLOL TARTRATE 50 MG TAB PO SCH (08:49)
[2020-10-09] MEDS: SODIUM CHLORIDE 0.9% 1,000 ML IV SCH (09:50)
[2020-10-09 12:29] LABS: Glucose,Whole Blood 147 mg/dL (75-99)
--- NOTE | 2020-10-09 12:50 | P.DS ---
Providers Date of admission: 10/06/20 22:10 Expected date of discharge: 10/09/20 Attending physician: Pieter Avilez MD Consults: 10/07/20 07:42 Consult Physician Routine Consulting Provider: Luis Armando Jorgensen Consult Reason/Comments: NSTEMI Do you want consulting provider notified?: Yes Primary care physician: Stated None Hospital Course: Discharge Diagnosis: 1. Non-ST segment elevation OR: 2. Essential hypertension: 3. Coronary artery disease status post CAB. Hyperlipidemia: 5. GERD without esophagitis: 6. Acute kidney injury on chronic kidney disease stage III B Hospital Course: Patient presented to the hospital with chest pain. She is found to have non-ST elevation OR. Patient's 2-D echocardiogram showed EF of 40-45%. Patient had a heart catheterization done that showed occlusion of her RCA and the likely cause of her chest pain. Cardiology recommended medical management. .During Hos pitalization patient's chest pain had resolved. On the day of discharge I discussed with cardiology who said patient is stable for discharge from their standpoint. Patient is looking forward to going home. 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 Patient Condition at Discharge: Good Plan - Discharge Summary Discharge Rx Participant: No New Discharge Prescriptions: New Metoprolol Tartrate [Lopressor] 100 mg PO BID #60 tab Atorvastatin [Lipitor] 80 mg PO HS #30 tab Continue Isosorbide Mononitrate ER [Imdur] 60 mg PO BID Cinnamon Bark [Cinnamon] 1,000 mg PO BID Cholecalciferol [Vitamin D3 (25 Mcg = 1000 Iu)] 1,000 unit PO DAILY Nitroglycerin Sl Tabs [Nitrostat] 0.4 mg SUBLINGUAL Q5M PRN PRN Reason: Chest Pain Fish Oil/Dha/Epa [Fish Oil 1,200 mg Fish Oil] 1 cap PO BID Famotidine 20 mg PO DAILY Ranolazine [Ranolazine ER] 500 mg PO BID Calcium Carbonate [Calcium] 600 mg PO DAILY Alendronate Sodium 70 mg PO RITCHIE Aspirin EC [Ecotrin Low Dose] 81 mg PO DAILY Prednisolone Acetate/Pf [Prednisolone Acet 1% Eye Drop] 1 drop BOTH EYES BID Discontinued Atorvastatin [Lipitor] 40 mg PO HS Metoprolol Tartrate [Lopressor] 100 mg PO BID Discharge Medication List Cholecalciferol [Vitamin D3 (25 Mcg = 1000 Iu)] 1,000 unit PO DAILY 03/17/15 [History] Cinnamon Bark [Cinnamon] 1,000 mg PO BID 03/17/15 [History] Isosorbide Mononitrate ER [Imdur] 60 mg PO BID 03/17/15 [History] Alendronate Sodium 70 mg PO RITCHIE 10/06/20 [History] Aspirin EC [Ecotrin Low Dose] 81 mg PO DAILY 10/06/20 [History] Calcium Carbonate [Calcium] 600 mg PO DAILY 10/06/20 [History] Famotidine 20 mg PO DAILY 10/06/20 [History] Fish Oil/Dha/Epa [Fish Oil 1,200 mg Fish Oil] 1 cap PO BID 10/06/20 [History] Nitroglycerin Sl Tabs [Nitrostat] 0.4 mg SUBLINGUAL Q5M PRN 10/06/20 [History] Prednisolone Acetate/Pf [Prednisolone Acet 1% Eye Drop] 1 drop BOTH EYES BID 10/06/20 [History] Ranolazine [Ranolazine ER] 500 mg PO BID 10/06/20 [History] Atorvastatin [Lipitor] 80 mg PO HS #30 tab 10/09/20 [Rx] Metoprolol Tartrate [Lopressor] 100 mg PO BID #60 tab 10/09/20 [Rx] Follow up Appointment(s)/Referral(s): Unruly Casarez MD [STAFF PHYSICIAN] - 1 Week Nonstaff,Physician [REFERRING] - 1-2 days Discharge Disposition: HOME SELF-CARE
[2020-10-09 13:00] VITALS: BP 151/67; PULSE 80; RESP 14; TEMP 98.1
--- NOTE | 2020-10-09 15:15 | P.PN ---
Subjective Progress Note Date: 10/09/20 CHIEF COMPLAINT: Chest pain HISTORY OF PRESENT ILLNESS: Patient underwent cardiac catheterization yesterday revealing total occlusion of all tlingit & haida vessels. Total occlusion of the RCA probably caused the current incident. The HADDAD graft to LAD is patent and vein graft to the circumflex his patent. Patient currently denies chest pain or pressure. She denies shortness of breath. Vital signs are stable. PHYSICAL EXAM: VITAL SIGNS: Reviewed. GENERAL: Well-developed in no acute distress. HEENT: Head is normocephalic. Pupils are equal, round. Sclerae anicteric. Mucous membranes of the mouth are moist. Neck supple. No JVD or thyromegaly LUNGS: Respirations even and unlabored. Lungs essentially clear to auscultation bilaterally. HEART: Regular rate and rhythm. S1 and S2 heard. Systolic murmur noted. EXTREMITIES: Normal range of motion. No clubbing or cyanosis. Peripheral pulses intact. No lower extremity edema. Left groin with pulse present. No hematoma noted. NEUROLOGIC: Awake and alert. Oriented x 3. ASSESSMENT: Non-ST elevated myocardial infarction History of coronary artery disease with previous CABG 4 in 1996 Hypertension Hyperlipidemia Acute kidney injury PLAN: Continue current cardiac medications Patient is stable for discharge home today from a cardiac perspective She is to follow up outpatient Nurse practitioner note has been reviewed by physician. Signing provider agrees with the documented findings, assessment, and plan of care. Objective - Vital Signs Vital signs: Vital Signs Temp 98.1 F 10/09/20 12:00 Pulse 80 10/09/20 12:00 Resp 14 10/09/20 12:00 BP 151/67 10/09/20 12:00 Pulse Ox 99 10/09/20 12:00 Intake & Output 10/08/20 10/09/20 10/09/20 18:59 06:59 18:59 Intake Total 736 240 480 Output Total 600 0 Balance 136 240 480 Weight 69.6 kg Intake: IV 125 Intake, IV Titration 611 Amount Sodium Chloride 0.9% 1, 547 000 ml In Empty Bag 1 bag @ 1 ML/KG/HR 68.492 mls/ hr IV .[id number] ONE Rx#: [id number] Sodium Chloride 0.9% 1, 64 000 ml In Empty Bag 1 bag @ 1 ML/KG/HR 68.9 mls/hr IV .[id number] ONE Rx#: [id number] Oral 240 480 Output: Urine 600 0 Other: Voiding Method Toilet Toilet # Voids 0 1 - Labs CBC & Chem 7: 10/09/20 07:21 10/09/20 07:21 Labs: Abnormal Lab Results - Last 24 Hours (Table) 10/08/20 10/08/20 10/09/20 Range/Units 07:54 19:51 06:04 RBC (3.80-5.40) m/uL Hgb (11.4-16.0) gm/dL Hct (34.0-46.0) % Plt Count (150-450) k/uL Lymphocytes # (1.0-4.8) k/uL Chloride (98-107) mmol/L BUN (7-17) mg/dL Creatinine (0.52-1.04) mg/dL Glucose (74-99) mg/dL POC Glucose (mg/dL) 190 H 139 H (75-99) mg/dL Hemoglobin A1c 6.7 H (4.0-6.0) % Total Protein (6.3-8.2) g/dL Albumin (3.5-5.0) g/dL 10/09/20 10/09/20 10/09/20 Range/Units 07:21 07:21 12:06 RBC 3.46 L (3.80-5.40) m/uL Hgb 10.6 L (11.4-16.0) gm/dL Hct 32.4 L (34.0-46.0) % Plt Count 95 L (150-450) k/uL Lymphocytes # 0.8 L (1.0-4.8) k/uL Chloride 110 H (98-107) mmol/L BUN 22 H (7-17) mg/dL Creatinine 1.35 H (0.52-1.04) mg/dL Glucose 138 H (74-99) mg/dL POC Glucose (mg/dL) 147 H (75-99) mg/dL Hemoglobin A1c (4.0-6.0) % Total Protein 5.8 L (6.3-8.2) g/dL Albumin 3.2 L (3.5-5.0) g/dL
== END 2020-10-09 14:29 | disposition home or self-care (01) | DRG 281 ==
LOC: EC 19:27 → 1SOBS 22:10 → UNDOADMOB 22:10 → 3SCARD 22:10
PROVIDERS: ADMIT Internal Medicine; ATTEND Internal Medicine
PROC: B2131ZZ Fluoroscopy of Multiple Coronary Artery Bypass Grafts using Low Osmolar Contrast (ICD-10-PCS; principal; 2020-10-08 11:00)
PROC: 4A023N7 Measurement of Cardiac Sampling and Pressure, Left Heart, Percutaneous Approach (ICD-10-PCS; principal; 2020-10-08 11:00)
PROC: B2111ZZ Fluoroscopy of Multiple Coronary Arteries using Low Osmolar Contrast (ICD-10-PCS; principal; 2020-10-08 11:00)
DX: I21.4 Non-ST elevation (NSTEMI) myocardial infarction (principal); N17.9 Acute kidney failure, unspecified; I16.1 Hypertensive emergency; E11.36 Type 2 diabetes mellitus with diabetic cataract; E11.22 Type 2 diabetes mellitus with diabetic chronic kidney disease; E86.1 Hypovolemia; N18.32 Chronic kidney disease, stage 3b; I12.9 Hypertensive chronic kidney disease with stage 1 through stage 4 chronic kidney disease, or unspecified chronic kidney disease; I25.10 Atherosclerotic heart disease of native coronary artery without angina pectoris; E78.5 Hyperlipidemia, unspecified; E78.00 Pure hypercholesterolemia, unspecified; H26.9 Unspecified cataract; F41.9 Anxiety disorder, unspecified; K21.9 Gastro-esophageal reflux disease without esophagitis; Z79.82 Long term (current) use of aspirin; Z79.83 Long term (current) use of bisphosphonates; Z79.899 Other long term (current) drug therapy; Z95.1 Presence of aortocoronary bypass graft; Z95.5 Presence of coronary angioplasty implant and graft; Z85.528 Personal history of other malignant neoplasm of kidney; Z87.440 Personal history of urinary (tract) infections; Z90.5 Acquired absence of kidney; Z98.890 Other specified postprocedural states; Z88.2 Allergy status to sulfonamides; Z88.8 Allergy status to other drugs, medicaments and biological substances; Z91.048 Other nonmedicinal substance allergy status; Z82.49 Family history of ischemic heart disease and other diseases of the circulatory system; Z80.1 Family history of malignant neoplasm of trachea, bronchus and lung; Z80.0 Family history of malignant neoplasm of digestive organs
CPT/HCPCS: 36415; 71275; 74174; 80053; 80061; 82550; 83036; 83690; 83735; 83880; 84484; 85025; 85610; 85730; 93005; 93306; 93459; 96361; 96365; 96366; 96374; 96375; 96376; 99291

== ENCOUNTER → 2020-11-23 | Outpatient (CLI) | payer MEDICARE, BC ==
--- NOTE | 2020-11-23 11:37 | US ---
EXAMINATION TYPE: US venous doppler duplex LE bilateral DATE OF EXAM: 11/23/2020 11:02 AM COMPARISON: NONE CLINICAL HISTORY: 85-year-old female R22.42 Swelling of lower leg. Edema SIDE PERFORMED: Bilateral TECHNIQUE: The lower extremity deep venous system is examined utilizing real time linear array sonography with graded compression, doppler sonography and color-flow sonography. FINDINGS: VESSELS IMAGED: Common Femoral Vein Deep Femoral Vein Greater Saphenous Vein * Femoral Vein Popliteal Vein Small Saphenous Vein * Proximal Calf Veins (* superficial vessels) Right Leg: Negative for DVT Left Leg: Negative for DVT IMPRESSION: No evidence for DVT within the bilateral lower extremities imaged from the groin to the upper calves. MTDD
== END | disposition home or self-care (01) ==
LOC: RADUSWWP 10:40
PROVIDERS: ATTEND Family Medicine
DX: R22.42 Localized swelling, mass and lump, left lower limb (principal)
CPT/HCPCS: 93970

== ENCOUNTER 2021-08-22 07:25 | Day surgery (SDC) | payer MEDICARE, BC ==
[2021-08-21 10:37] VITALS: BMI 23.5
[~2021-08-22 07:25] MED LIST changes: +ALPRAZolam 0.25 MG TAB PO PRN; +ALPRAZolam 0.5 MG TAB PO PRN; +ASPIRIN 325 MG TAB PO ONE; +ATORVASTATIN 80 MG TAB PO ONE; -DENOSUMAB 60 MG/ML 1 ML SYRINGE SQ ONE; +NITROGLYCERIN SL TABS 0.4 MG TAB SUBLINGUAL PRN; +SODIUM CHLORIDE 0.9% 1,000 ML in EMPTY BAG 1 BAG IV SCH
[2021-08-22 08:02] LABS: Glucose,Whole Blood 175 mg/dL (75-99)
[2021-08-22 08:05] VITALS: TEMP 97.9
[2021-08-22] MEDS ORDERED: SODIUM CHLORIDE 0.9% 1,000 ML IV ONE (08:06)
[2021-08-22 08:28] LABS: Basophils % (A) 0 %; Eosinophils # (A) 0.1 k/uL (0-0.7); Eosinophils % (A) 1 %; HCT 34.3 % (34.0-46.0); HGB 11.1 gm/dL (11.4-16.0); Lymphocytes # (A) 0.8 k/uL (1.0-4.8); Lymphocytes % (A) 14 %; MCHC 32.3 g/dL (31.0-37.0); MCV 95.9 fL (80.0-100.0); Mean Platelet Volume 7.5; Monocytes # (A) 0.3 k/uL (0-1.0); Monocytes % (A) 5 %; Neutrophils # (A) 4.5 k/uL (1.3-7.7); Neutrophils % (A) 78 %; Platelet Count 131 k/uL (150-450); RBC 3.57 m/uL (3.80-5.40); RDW 13.5 % (11.5-15.5); WBC 5.7 k/uL (3.8-10.6)
[2021-08-22] MEDS ORDERED: MIDAZOLAM 2 MG/2 ML VIAL IVP ONE (08:38)
[2021-08-22] MEDS ORDERED: LIDOCAINE 1% INJ 10MG/ML (20 ML MDV) SQ ONE ×2 (08:39→08:41)
[2021-08-22 08:50] LABS: Calcium 8.3 mg/dL (8.4-10.2); Potassium 3.6 mmol/L (3.5-5.1)
[2021-08-22] MEDS ORDERED: IOPAMIDOL-370 125ML BTL INJ ONE (09:00)
[2021-08-22] MEDS ORDERED: RX INFO: IV CONTRAST WAS GIVEN 1 EACH MISC MISCELLANE PRN (09:04)
[2021-08-22] MEDS ORDERED: SODIUM CHLORIDE 0.9% 1,000 ML IV SCH (09:15)
--- NOTE | 2021-08-22 12:06 | CC ---
CARDIAC CATHETERIZATION REPORT DATE OF SERVICE: August 22, 2021. PERFORMING PHYSICIAN: Henrique Aldrich MD. PROCEDURE PERFORMED: 1. Selective left and right coronary angiogram. 2. HADDAD to LAD angiogram. 3. SVG to left circumflex angiogram. 4. Selective right common femoral artery angiogram. 5. Ultrasound-guided access of the right common femoral artery. INDICATION: Severe cardiomyopathy in this 86-year-old lady who is known to have CAD, with prior coronary artery bypass grafting. APPROACH: Right common femoral artery. COMPLICATION: None. LEVEL OF SEDATION: Moderate with sedation length of 23 minutes. PROCEDURE DESCRIPTION: After obtaining informed consent, the patient was brought to the cardiac laborer [facility]bark. The right common femoral artery was cannulated using micropuncture technique under ultrasound guidance. The micropuncture wire passed easily then I placed a 6-Trinidadian sheath in the right common femoral artery. I had pre-dilated using 5 and 7-Trinidadian dilator. After that, I did selective left and right coronary angiogram with JL4 and JR4 catheters. HADDAD to LAD angiogram and SVG to left circumflex angiogram performed using the JR4 catheters. The procedure was completed without any complication. By the end, I did selective right common femoral artery angiogram. The procedure was completed without any complication. SELECTIVE CORONARY ANGIOGRAM: 1. The left main is occluded. 2. The RCA is occluded as well. CORONARY BYPASS ANGIOGRAM: 1. The HADDAD to LAD is patent. 2. The SVG to left circumflex is patent as well. CONCLUSION: 1. Severe triple-vessel coronary artery disease. 2. Patent HADDAD to LAD. 3. Patent SVG to left circumflex. POSTPROCEDURE MANAGEMENT: 1. Given the above anatomy, I advise maximize medical treatment and treatment for the cardiomyopathy. 2. Follow up with the patient. MMODL / IJN: [id number] /
[2021-08-22 14:48] VITALS: RESP 16
[2021-08-22 15:18] VITALS: BP 167/73; PULSE 60
== END 2021-08-22 16:31 | disposition home or self-care (01) ==
LOC: CATHCVL 07:25
PROVIDERS: ATTEND Internal Medicine Interventional Cardiology
DX: I25.10 Atherosclerotic heart disease of native coronary artery without angina pectoris (principal); I42.9 Cardiomyopathy, unspecified; E11.9 Type 2 diabetes mellitus without complications; I10 Essential (primary) hypertension; E78.5 Hyperlipidemia, unspecified; F17.210 Nicotine dependence, cigarettes, uncomplicated; Z20.822 Contact with and (suspected) exposure to COVID-19
CPT/HCPCS: 93455; 76937; 80048; 85025; 87635; C1769 ×3; C1894; J2250; J2001; Q9967

== ENCOUNTER 2022-07-16 11:50 | Emergency (ER) | payer MEDICARE, BC ==
[2022-07-16 12:07] VITALS: BP 114/58; PULSE 78; RESP 16; TEMP 97
[2022-07-16] MEDS ORDERED: KETOROLAC 15 MG/ML 1 ML VIAL IVP STA (14:43)
--- NOTE | 2022-07-16 14:48 | ED ---
General Adult HPI - General Chief complaint: Extremity Problem,Nontraumatic Stated complaint: no pulse lt leg Time Seen by Provider: 07/16/22 14:25 Source: patient, family, RN notes reviewed, old records reviewed Mode of arrival: wheelchair Limitations: physical limitation - History of Present Illness Initial comments: This is an 87-year-old female presents emergency Department complaining of chronic pain for the last 6 months from her left hip down to the leg into the foot. Patient states when she sits still it does not hurt she has full range of motion of all of her joints. Patient states that pain is worse only when she gets up and walks. Patient states that it happens immediately after she walked any distance. Patient initially stated that the color of the lateral aspect of her leg is changing. But that was resolved when I used the alcohol swab to remove the horse liniment that she placed on her leg. Patient denies any recent injury. Patient states she was a heavy smoker for many years but she has quit for about 15 now. Patient denies any injury to the leg. Patient has no other complaints at this time. - Related Data Home Medications Medication Instructions Recorded Confirmed Cholecalciferol [Vitamin D3 (25 1,000 unit PO DAILY 03/17/15 08/21/21 Mcg = 1000 Iu)] Cinnamon Bark [Cinnamon] 1,000 mg PO BID 03/17/15 08/21/21 Isosorbide Mononitrate ER [Imdur] 60 mg PO BID 03/17/15 08/22/21 Alendronate Sodium 70 mg PO RITCHIE 10/06/20 08/22/21 Aspirin EC [Ecotrin Low Dose] 81 mg PO DAILY 10/06/20 08/22/21 Calcium Carbonate [Calcium] 600 mg PO DAILY 10/06/20 08/21/21 Famotidine 20 mg PO DAILY 10/06/20 08/22/21 Fish Oil/Dha/Epa [Fish Oil 1,200 1 cap PO BID 10/06/20 08/21/21 mg Fish Oil] Nitroglycerin Sl Tabs [Nitrostat] 0.4 mg SUBLINGUAL Q5M PRN 10/06/20 08/21/21 Ranolazine [Ranolazine ER] 500 mg PO BID 10/06/20 08/22/21 amLODIPine [Norvasc] 5 mg PO BID 08/21/21 08/22/21 Previous Rx's Medication Instructions Recorded Atorvastatin [Lipitor] 80 mg PO HS #30 tab 10/09/20 Metoprolol Tartrate [Lopressor] 100 mg PO BID #60 tab 10/09/20 predniSONE [Deltasone] 40 mg PO DAILY #8 tab 07/16/22 Allergies Allergy/AdvReac Type Severity Reaction Status Date / Time CHALINO Inhibitors Allergy Unknown Cough Verified 07/16/22 12:02 adhesive Allergy Rash/Hives,states Verified 07/16/22 12:02 "paper tape is ok" Sulfa (Sulfonamide Allergy skin turns Verified 07/16/22 12:02 Antibiotics) bright red Review of Systems ROS Statement: Those systems with pertinent positive or pertinent negative responses have been documented in the HPI. ROS Other: All systems not noted in ROS Statement are negative. Past Medical History Past Medical History: Cancer, Diabetes Mellitus, GERD/Reflux, Hyperlipidemia, Hypertension, Myocardial Infarction (NJ) Additional Past Medical History / Comment(s): 04/13/15 angioplasty RCA. HX OF KIDNEY CA, UTI, WAS TOLD BY A DR SHE HAD AN NJ AT ONE TIME BASED ON AN EKG THAT WAS DONE-DATE UNK, Valve and clip procedure done at [facility] in dec 2019, diet controlled diabetic Last Myocardial Infarction Date:: unk History of Any Multi-Drug Resistant Organisms: None Reported Past Surgical History: Cholecystectomy, Coronary Bypass/CABG, Heart Cathet erization Additional Past Surgical History / Comment(s): 04/13/15 PTCA RCA, 1996 CABG 4 VESSEL, 10% RT KIDNEY REMOVED, 2016 R leg angioplasty,kyle cataract Past Anesthesia/Blood Transfusion Reactions: No Reported Reaction Additional Past Anesthesia/Blood Transfusion Reaction / Comment(s): vertigo Past Psychological History: No Psychological Hx Reported Smoking Status: Former smoker Past Alcohol Use History: None Reported Past Drug Use History: None Reported - Past Family History Brother(s) Family Medical History: Cancer Additional Family Medical History / Comment(s): LUNG/LIVER Sister(s) Family Medical History: Cancer Additional Family Medical History / Comment(s): LIVER Father Family Medical History: Myocardial Infarction ([place]) Additional Family Medical History / Comment(s): Father of a NJ at age 72yrs. Mother Family Medical History: Myocardial Infarction ([place]) Additional Family Medical History / Comment(s): Mother had 11 NJ's and at age 66 yrs. General Exam - General Exam Comments Initial Comments: GENERAL: Patient is well-developed and well-nourished. Patient is nontoxic and well-h ydrated and is in mild distress. ENT: Neck is soft and supple. No significant lymphadenopathy is noted. Oropharynx is clear. Moist mucous membranes. EYES: The sclera were anicteric and conjunctiva were pink and moist. Extraocular movements were intact and pupils were equal round and reactive to light. Eyelids were unremarkable. SKIN: Skin is clear with no lesions or rashes and otherwise unremarkable. NEUROLOGIC: Patient is alert and oriented x3. Cranial nerves II through XII are grossly intact. Motor and sensory are also intact. Normal speech, volume and content. Symmetrical smile. MUSCULOSKELETAL: Normal extremities with adequate strength and full range of motion. No lower extremity swelling or edema. No calf tenderness. Patient had a horse liniment on the leg and they were concerned that the color change but alcohol swabs were able to remove the horse liniment. Patient also has a significantly smaller and atrophied compared to the left leg and they state that been a chronic problem but does seem to be getting slightly worse. DP pulses were palpated on the right foot. Patient also had Refill that was about 2 seconds. Patient's foot was slightly colder than the left foot. LYMPHATICS: No significant lymphadenopathy is noted PSYCHIATRIC: Normal psychiatric evaluation. Limitations: physical limitation Course Vital Signs 07/16/22 12:03 Temperature 97 F L Pulse Rate 78 Respiratory 16 Rate Blood Pressure 114/58 O2 Sat by Pulse 100 Oximetry Medical Decision Making - Medical Decision Making Lumbosacral spine x-ray shows degenerative disc disease. Patient received Toradol the emergency department. Disposition Clinical Impression: Sciatica Disposition: HOME SELF-CARE Condition: Good Instructions (If sedation given, give patient instructions): Sciatica (ED) Additional Instructions: Patient should follow-up with the vascular surgeon. Prescriptions: predniSONE [Deltasone] 40 mg PO DAILY #8 tab Is patient prescribed a controlled substance at d/c from ED?: No Referrals: Coy Lynn DO [Doctor of Osteopathic Medicine] - 1-2 days Time of Disposition: 16:04
--- NOTE | 2022-07-16 15:02 | XR ---
EXAMINATION TYPE: XR lumbosacral spine min 4V DATE OF EXAM: 07/16/2022 2:59 PM INDICATION: Patient age:Female; 87 years old; Reason for study: Pain down the lateral aspect of the right leg; PHH. COMPARISON: CTA chest abdomen pelvis 10/06/2020. TECHNIQUE: Frontal, lateral , bilateral oblique and coned in L5-S1 lateral views of the spine. FINDINGS: No evidence of any acute osseous pathology. No evidence of loss of vertebral body height i s seen. Multilevel degenerative disc disease most pronounced at L5-S1 with disc space narrowing, endp late sclerosis, and anterior asbestosis. Multilevel facet arthropathy. There is normal alignment of t he lumbar vertebral bodies. Vascular sclerosis. Suture material within the right mid abdomen. IMPRESSION: 1. No acute process. 2. Mild to moderate degenerative disc disease.
== END 2022-07-16 16:37 | disposition home or self-care (01) ==
LOC: EC 11:50
DX: M54.30 Sciatica, unspecified side (principal); E11.9 Type 2 diabetes mellitus without complications; K21.9 Gastro-esophageal reflux disease without esophagitis; E78.5 Hyperlipidemia, unspecified; I10 Essential (primary) hypertension; I25.2 Old myocardial infarction; Z87.891 Personal history of nicotine dependence; Z88.2 Allergy status to sulfonamides; Z91.048 Other nonmedicinal substance allergy status; Z88.8 Allergy status to other drugs, medicaments and biological substances; Z79.82 Long term (current) use of aspirin; Z79.899 Other long term (current) drug therapy
CPT/HCPCS: 72110; 99283; 96374; J1885

== ENCOUNTER → 2022-08-15 | Outpatient (CLI) | payer MEDICARE, BC ==
[2022-08-15 14:26] LABS: HCT 36.3 % (37.2-46.3); HGB 11.4 g/dL (12.0-15.0); MCH 31.5 pg (27.0-32.0); MCHC 31.4 g/dL (32.0-37.0); MCV 100.3 fL (80.0-97.0); Mean Platelet Volume 9.8 fL (9.5-12.2); NRBC Per 100 WBC 0 /100 WBCS (0.0-0.0); Platelet Count 143 X 10*3/uL (140-440); RBC 3.62 X 10*6/uL (4.10-5.20); RDW 16.4 % (11.5-14.5); WBC 5.98 X 10*3/uL (4.50-10.00)
[2022-08-15 14:49] LABS: Anion Gap 11.1 mmol/L (10.00-18.00); Blood Urea Nitrogen 25.2 mg/dL (9.0-27.0); Non-African American GFR(CKD) 34.5 (60.0-200.0); Potassium 5.9 mmol/L (3.5-5.5)
== END | disposition home or self-care (01) ==
LOC: LABPAT 07:45
PROVIDERS: ATTEND Internal Medicine Interventional Cardiology
DX: Z01.812 Encounter for preprocedural laboratory examination (principal); I70.213 Atherosclerosis of native arteries of extremities with intermittent claudication, bilateral legs
CPT/HCPCS: 36415; 80051; 82565; 84520; 85027